=== PATIENT | female | born 1965 | race Caucasian/White ===

== ENCOUNTER 2017-05-17 19:14 | Emergency (ER) | payer BC ==
[2017-05-17 19:22] VITALS: BP 153/88; PULSE 100; RESP 18; TEMP 98.2
[2017-05-17] MEDS ORDERED: DIPH,PERTUS(ACELL)TETVAC-LF 0.5 ML VIAL IM ONE (19:37)
[2017-05-17] MEDS ORDERED: TOPICAL SKIN ADHESIVE 1 EACH AMP TOPICAL ONE (20:05)
--- NOTE | 2017-05-17 20:10 | ED ---
Wound/Laceration HPI - General Chief Complaint: Wound/Laceration Stated Complaint: laceration left hand middle finger Time Seen by Provider: 05/17/17 19:27 Source: patient, family, RN notes reviewed Mode of arrival: ambulatory Limitations: no limitations - History of Present Illness Initial Comments: This is a 52-year-old female who presents to the emergency department with chief complaint of left middle finger laceration. Patient states that approximately 30 minutes prior to arrival she was trimming a tree at her home. She accidentally cut the end of her left middle finger with a set of tree trimming luigi. She presents to the emergency department because there was a moderate amount of bleeding present. Patient states she is unsure if she is up- to-date with her tetanus vaccination. She states that she has mild pain at the tip of her finger and is able to fully move all joints. No concern for foreign body. Denies fever, chills, chest pain, shortness of breath, abdominal pain, nausea or vomiting, constipation or diarrhea, dysuria or hematuria, numbness or tingling, headache or vision changes. - Related Data Home Medications Medication Instructions Recorded Confirmed No Known Home Medications [No 05/17/17 05/17/17 Known Home Medications] Allergies Allergy/AdvReac Type Severity Reaction Status Date / Time No Known Allergies Allergy Verified 05/17/17 19:22 Review of Systems ROS Statement: Those systems with pertinent positive or pertinent negative responses have been documented in the HPI. ROS Other: All systems not noted in ROS Statement are negative. Past Medical History Past Medical History: No Reported History History of Any Multi-Drug Resistant Organisms: None Reported Past Surgical History: Hysterectomy Past Psychological History: No Psychological Hx Reported Smoking Status: Never smoker Past Alcohol Use History: None Reported Past Drug Use History: None Reported General Exam - General Exam Comments Initial Comments: General: Awake and alert, well-developed; in no apparent distress. HEENT: Head atraumatic, normocephalic. Pupils are equal, round and reactive to light. Extraocular movements intact. Neck: Supple. Normal ROM. Cardiovascular: Regular rate and rhythm. No murmurs, rubs or gallops. Chest symmetrical. Respiratory: Lungs clear to auscultation bilaterally. No wheezes, rales or rhonchi. Normal respiratory effort with no use of accessory muscles. Musculoskeletal: Normal active and passive range of motion of left middle finger. Sensation is intact. Radial pulses are 2+ equal and palpable bilaterally. Skin: [place], warm and dry without rashes. There is an approximately 0.5 cm crescent shaped laceration at the distal tip of left middle finger. Edges are well approximated. Mild bleeding noted. Neurological: Alert and oriented x3. CN II-XII grossly intact. Speech is fluent and answers are appropriate. No focal neuro deficits. Psychiatric: Normal mood and affect. No overt signs of depression or anxiety noted. Limitations: no limitations Course Vital Signs 05/17/17 19:19 Temperature 98.2 F Pulse Rate 100 Respiratory 18 Rate Blood Pressure 153/88 O2 Sat by Pulse 98 Oximetry Procedures - Laceration Laceration #1 Consent Obtained: verbal consent Indication: laceration Site: hand (distal left middle finger) Size (cm): 1 Description: flap Depth: simple, single layer Pre-repair: wound explored, irrigated extensively, deep structures intact Type of Sutures: other (dermabond) Patient Tolerated Procedure: well, no complications Medical Decision Making - Medical Decision Making This is a 52-year-old female who presents to emergency department with chief complaint of left middle finger laceration. Wound was cleansed, irrigated and Dermabond was applied. Patient tolerated well without complication. Neurovascularly intact. Patient is provided with a Dermabond information sheet. Made up-to-date with tetanus vaccination while in the emergency department. Patient will be discharged home with recommendation to allow Dermabond to fall off on its own in the next 5-10 days. Patient advised to monitor for any signs of infection. Patient is in agreement with plan and voiced understanding. All questions were answered. Disposition Clinical Impression: Finger laceration Disposition: HOME SELF-CARE Condition: Good Instructions: Finger Laceration (ED) Additional Instructions: Please allow Dermabond to fall off on its own in the next 5-10 days. Please follow up with primary care provider within 1-2 days. Return to emergency department if symptoms should worsen or any concerns arise. Referrals: Alex Trevino MD [Primary Care Provider] - 1-2 days Time of Disposition: 20:20
== END 2017-05-17 20:30 | disposition home or self-care (01) ==
LOC: EC 19:14
DX: S61.213A Laceration without foreign body of left middle finger without damage to nail, initial encounter (principal); Z23 Encounter for immunization; W45.8XXA Other foreign body or object entering through skin, initial encounter; Y93.H2 Activity, gardening and landscaping; Y92.009 Unspecified place in unspecified non-institutional (private) residence as the place of occurrence of the external cause
CPT/HCPCS: 12001; 90471; 90715; 99282